=== PATIENT | female | born 1960 | race Caucasian/White ===

== ENCOUNTER 2018-11-26 17:16 | Emergency (ER) | payer OTHER ==
[~2018-11-26] VITALS: Ht 162.6 cm; Wt 95.2 kg
[2018-11-26] MEDS ORDERED: ZOLOFT25 MG PO (17:48)
[2018-11-26] MEDS ORDERED: LEVOTHYROXINE112 MCG PO (17:48)
[2018-11-26] MEDS ORDERED: IMITREX50 MG PO (17:49)
[2018-11-26] MEDS ORDERED: OMEPRAZOLE20 MG PO (17:49)
[2018-11-26] MEDS ORDERED: K-TAB10 MEQ PO (18:48)
--- NOTE | 2018-11-27 07:46 | EKG ---
[facility] [address] [place], [place] [address] Signed Normal sinus rhythm Normal ECG No previous ECGs available Confirmed by CARINA LOCK MD [id number] on 11/27/2018 7:45:55 AM Electronically Signed By: CARINA LOCK MD 11/27/18 0746 PATIENT NAME: MIROSLAVA LIZ ESDRAS Electrocardiogram DATE OF : 64 PHYSICIAN: CARINA LOCK MD REPORT #: [id number] REPORT IS CONFIDENTIAL AND NOT TO BE RELEASED WITHOUT AUTHORIZATION
== END 2018-11-26 18:50 | disposition home or self-care (01) ==
LOC: ED 17:16
DX: E87.6 Hypokalemia (principal); K21.9 Gastro-esophageal reflux disease without esophagitis; E03.9 Hypothyroidism, unspecified; F32.9 Major depressive disorder, single episode, unspecified; Z88.2 Allergy status to sulfonamides; Z88.1 Allergy status to other antibiotic agents; Z88.5 Allergy status to narcotic agent; Z79.899 Other long term (current) drug therapy
CPT/HCPCS: 80053; 84484; 85025; 93005; 93010; 99284-25; J7030